=== PATIENT | male | born 1940 | race Caucasian/White ===

== ENCOUNTER → 2016-06-23 | Outpatient (CLI) | payer OTHER, MEDICARE | LOC: BHFA 13:45 | PROVIDERS: ATTEND Internal Medicine Cardiovascular Disease | DX: I10 Essential (primary) hypertension (principal); I25.10 Atherosclerotic heart disease of native coronary artery without angina pectoris; E78.00 Pure hypercholesterolemia, unspecified ==

== ENCOUNTER 2018-06-03 11:21 | Emergency (ER) | payer OTHER, MEDICARE ==
[2018-06-03] MEDS ORDERED: IOPAMIDOL (ISOVUE-300) 100 ML BTL ONE (12:22)
--- NOTE | 2018-06-03 12:22 | EDPHY ---
H & P Stated Complaint: right sided neck/jaw lump for weeks, increased size & tenderness for 2 days Time Seen by Provider: 06/03/18 11:36 HPI/ROS: CHIEF COMPLAINT: painful lump right neck HISTORY OF PRESENT ILLNESS: This is a 78-year-old male with multiple medical problems including coronary artery disease and hypertension. He presents today complaining of a painful lump under his right drawn. This has been present for weeks, perhaps months. However it has become increasingly more painful. Last night he was unable to sleep because of pain. The pain constant, not related to eating. He denies difficulty swallowing. There is no change in his breathing (he wears oxygen at night). No toothache. He has not had fever. He does report global headache that has been present on and off for the last couple of days. He took 500 mg of Tylenol last night, none today, as best he can recollect. REVIEW OF SYSTEMS: A ten system review of systems was performed and is negative with the exception of the items mentioned in the HPI. He also reports occasional loose stool. He is anticipating cataract surgery. He is a having hearing aid fit. Past medical history: 1. Coronary artery disease status post stenting 2. Hypercholesterolemia 3. Hypertension 4. Hypoxia at night, on supplemental oxygen 5. GERD 6. Hearing loss 7. Internal hemorrhoids 8. Right wrist fracture at age 17 9. Right foot fracture secondary to fall in 1990 10. Left radial head fracture related to fall in 2001 Past surgical history: 1. Tonsillectomy at age 4 2. Vasectomy 1981 3. Removal of skin cancers 4. Excision of lipoma on back 1988 5. TURP 2005, [employer] surgery for BPH 2011 6. Radiofrequency turbinate reduction surgery 2016 Social history: Retired. He lives alone, with his cat who has ESRD. No tobacco , rare alcohol, no illicits. General Appearance: Alert. Vital signs reviewed. Blood pressure 167/90 at triage. Eyes: Pupils equal and round, no conjunctival injection, no discharge. Anicteric. ENT, Mouth: Mucous membranes are moist, no oropharyngeal erythema or edema. No trismus. No pain with percussion of teeth. No swelling on the floor of the mouth. No palpable stone with palpation along the tract of the salivary ducts. No visible purulence expressed from the salivary ducts. Neck: Tender mass at angle of the mandible, just below the right ear lobe. Nontender to palpation over the cervical spine posteriorly. Trachea midline. Respiratory: Lungs are clear to auscultation; no wheezes, rales, or rhonchi. Cardiovascular: Regular rate and rhythm; no murmur, rub, or gallop. Gastrointestinal: Abdomen is soft and nontender, no masses or organomegaly, bowel sounds normal. 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 Back: Nontender to palpation over the thoracolumbar spine. No CVAT. Extremities: No lower extremity edema, no calf tenderness or swelling. Neurological: Alert and oriented. Moving all four extremities easily and equally. DIANN. EOMI. Facial expressions symmetric. Tongue midline. Facial sensation intact to light touch. Psychiatric: Normal affect. - Medical/Surgical History Other PMH: tonsilectomy, basal cell , pulmonary htn, turp, cardiac stent,reflux, arthritis - Social History Smoking Status: Never smoked Constitutional: Initial Vital Signs Temperature (C) 36.5 C 06/03/18 11:33 Heart Rate 65 06/03/18 11:33 Respiratory Rate 18 06/03/18 11:33 Blood Pressure 167/90 H 06/03/18 11:33 O2 Sat (%) 96 06/03/18 11:33 O2 Delivery Mode Room Air Allergies/Adverse Reactions: ALLERGY SHOT Allergy (Severe, Uncoded 06/03/18 11:32) ANAPHYLACTIC Home Medications: Medication Instructions Recorded Ezetimibe/Simvastatin [Vytorin 1 each PO 07/20/12 10-20 mg Tablet] Irbesartan [Avapro 150 mg (RX)] 150 mg PO DAILY 07/20/12 LANSOPRAZOLE [Prevacid 30 mg cap] 30 mg PO 07/20/12 Montelukast Sodium [Singulair 10 10 mg PO DAILY@1800 07/20/12 mg (RX)] Nitroglycerin [Nitrostat 0.4 mg 0.4 mg SL PRN PRN 07/20/12 (RX)] Oxygen-Air Delivery Systems 1 ea IH HS 07/20/12 [OXYGEN] Medical Decision Making ED Course/Re-evaluation: Neck mass, increasing in size and becoming more tender. CT results reviewed with radiologist. CT results discussed with patient. Will likely need needle aspiration/biopsy--ENT referral made. No stone seen on CT--sialolithiasis an unlikely diagnosis. Infection vs malignancy are still considerations. I discussed patient with documentation spec ENT, , and she will see him this week in her office for further evaluation. He is not in danger of airway compromise. He does not appear ill/septic. No further ED work up needed at this time. Patient aware of high blood pressure readings in ED. This will be re-checked by PCP. Differential Diagnosis: I considered a differential diagnosis that includes but is not limited to sialolithiasis, sialoadenitis, malignancy, abscess, cellulitis, lymphoma, lymphadenopathy. - Data Points Point of Care Test Results: CBC CBC Collection Date 06/03/18 CBC Collection Time 12:15 WBC 7.13 RBC 5.38 HGB 17.3 HCT 50.2 PLT 210 Neut # 4.42 Neut 62.1 LYMPH # 1.52 LYMPH 21.3 MCV 93.3 Chemistry 06/03/18 13:22 POC Creatinine 0.7 mg/dL mg/dL (0.7-1.3) Departure - Departure Disposition: Home, Routine, Self-Care Clinical Impression: Neck mass Condition: Good Instructions: Soft Tissue Mass (ED) Additional Instructions: You will need to follow up with an Ear, Nose, and Throat doctor. That doctor will likely take a sample of tissue and/or fluid from this mass in order to determine what is causing it. I have spoken with Dr. Xiomara Linares, learning support resource room teacher. She is documentation spec for the emergency department and will be able to see you in her office this week. I am giving you her office phone number so that you can call and arrange an appointment. Make sure the office staff knows that you were referred by the emergency department and that the emergency department physician spoke with Dr. Linares. If you would like, you can follow up with Dr. Ngo. I am also providing his phone number. If anything changes for the worse--if you are unable to breathe or swallow--you should be re-evaluated immediately. Referrals: Elver Jean Baptiste MD [Primary Care Provider] - As per Instructions Xiomara Linares MD [Medical Doctor] - As per Instructions Patrick Ngo MD [Medical Doctor] - As per Instructions
[2018-06-03 14:38] VITALS: BP 166/90
== END 2018-06-03 14:46 | disposition home or self-care (01) ==
LOC: CED 11:21
DX: R22.1 Localized swelling, mass and lump, neck (principal); I10 Essential (primary) hypertension; I25.10 Atherosclerotic heart disease of native coronary artery without angina pectoris; R09.02 Hypoxemia; E78.00 Pure hypercholesterolemia, unspecified; K21.9 Gastro-esophageal reflux disease without esophagitis
CPT/HCPCS: 70492; 99285; Q9967; 82565-PO

== ENCOUNTER → 2018-07-28 | Outpatient (CLI) | payer OTHER, MEDICARE | LOC: FIMAGING 14:46 | PROVIDERS: ATTEND Internal Medicine | DX: J98.09 Other diseases of bronchus, not elsewhere classified (principal) ==

== ENCOUNTER → 2018-09-05 | Outpatient (CLI) | payer OTHER, MEDICARE | LOC: FIMAGING 14:52 | PROVIDERS: ATTEND Internal Medicine Pulmonary Disease | DX: R05 Cough (principal); R91.8 Other nonspecific abnormal finding of lung field ==